=== PATIENT | female | born 2000 | race Caucasian/White ===

== ENCOUNTER 2022-03-20 17:00 | Emergency (ER) | payer OTHER ==
[2022-03-20 17:51] LABS: CORONAVIRUS COVID-19 NAA NEGATIVE (NEGATIVE); INFLUENZA A NAA NEGATIVE (NEGATIVE); INFLUENZA B NAA NEGATIVE (NEGATIVE)
== END 2022-03-20 17:32 | disposition home or self-care (01) ==
LOC: MW.ED 17:00
DX: B34.9 Viral infection, unspecified (principal); J04.0 Acute laryngitis; Z91.040 Latex allergy status; Z88.2 Allergy status to sulfonamides; Z88.1 Allergy status to other antibiotic agents; Z20.822 Contact with and (suspected) exposure to COVID-19
CPT/HCPCS: 0240U; 99283

== ENCOUNTER 2022-04-17 19:15 | Emergency (ER) | payer OTHER ==
[2022-04-17] MEDS ORDERED: Ibuprofen 600 MG Tab PO ONE (23:43)
== END 2022-04-17 23:50 | disposition home or self-care (01) ==
LOC: MW.ED 19:15
DX: S67.22XA Crushing injury of left hand, initial encounter (principal); W01.0XXA Fall on same level from slipping, tripping and stumbling without subsequent striking against object, initial encounter
CPT/HCPCS: 73140; 99283; A9270

== ENCOUNTER 2022-08-05 17:47 | Emergency (ER) | payer OTHER ==
[2022-08-05 19:07] LABS: CORONAVIRUS COVID-19 NAA NEGATIVE (NEGATIVE); INFLUENZA A NAA NEGATIVE (NEGATIVE); INFLUENZA B NAA NEGATIVE (NEGATIVE); RESPIRATORY SYNCYTIAL VIR NAA NEGATIVE (NEGATIVE)
[2022-08-05] MEDS ORDERED: Amoxicillin/Clavulanate K 875-125 MG Tab PO ONE (19:19)
== END 2022-08-05 19:32 | disposition home or self-care (01) ==
LOC: MW.ED 17:47
DX: H66.001 Acute suppurative otitis media without spontaneous rupture of ear drum, right ear (principal); K21.9 Gastro-esophageal reflux disease without esophagitis; Z20.822 Contact with and (suspected) exposure to COVID-19; Z91.040 Latex allergy status; Z88.2 Allergy status to sulfonamides; Z79.899 Other long term (current) drug therapy
CPT/HCPCS: 0241U; 87651; 99283; A9270

== ENCOUNTER 2024-02-15 21:07 | Emergency (ER) | payer OTHER ==
[2024-02-15] MEDS: Acetaminophen 500 MG Tab PO ONE (22:31)
[2024-02-15] MEDS: Ibuprofen 600 MG Tab PO ONE (22:31)
[2024-02-15] MEDS: Albuterol 8 GM Inhaler INH ONE (22:31)
[2024-02-15] MEDS: Benzonatate 100 MG Cap PO STA (22:35)
[2024-02-15] MEDS: guaiFENesin/Dextromethorphan 100-10 MG/5 ML Soln 10 ML Cup PO STA (22:35)
== END 2024-02-16 02:01 | disposition home or self-care (01) ==
LOC: MW.ED 21:07
DX: J06.9 Acute upper respiratory infection, unspecified (principal); B97.89 Other viral agents as the cause of diseases classified elsewhere; J45.909 Unspecified asthma, uncomplicated; K21.9 Gastro-esophageal reflux disease without esophagitis; Z88.2 Allergy status to sulfonamides; Z91.040 Latex allergy status; Z88.8 Allergy status to other drugs, medicaments and biological substances; Z79.899 Other long term (current) drug therapy
CPT/HCPCS: 71045; 87635; 93005; 99285; A9270; 93010; 99283; U0002